=== PATIENT | female | born 1980 | race Caucasian/White ===

== ENCOUNTER 2017-12-28 16:20 | Emergency (ER) | payer BC ==
[2017-12-28 16:35] VITALS: BP 118/70; PULSE 92; RESP 20; TEMP 98.6; O2SAT 97
[2017-12-28] MEDS ORDERED: BUPR150CR PO (16:47)
[2017-12-28] MEDS ORDERED: CELE40TA PO (16:47)
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
== END 2017-12-28 17:29 | disposition home or self-care (01) ==
LOC: PHEFT 16:20
DX: S19.9XXA Unspecified injury of neck, initial encounter (principal); F32.9 Major depressive disorder, single episode, unspecified; Z76.5 Malingerer [conscious simulation]; Z79.899 Other long term (current) drug therapy; Z72.0 Tobacco use; W22.8XXA Striking against or struck by other objects, initial encounter
CPT/HCPCS: 99281